=== PATIENT | female | born 1970 | race Caucasian/White ===

== ENCOUNTER → 2022-01-16 | Outpatient (CLI) | payer MEDICARE, OTHER ==
--- NOTE | 2022-01-16 11:17 | KCIC ---
INDICATION: Reason: RUQ PAIN / Spl. Instructions: Sofie in 2000 / History: New RUQ pain x 2 months. COMPARISON: December 28, 2021 CT TECHNIQUE: MRI images are obtained of the abdomen including three-dimensional MRCP images. FINDINGS: Vascular: No abdominal aortic aneurysm. Hepatobiliary: Within the gallbladder fossa region there is a 40 x 25 mm structure identified which c orresponds to the high density structure seen on recent CT. T2 hyperintense lesion at the medial aspe ct of the right lobe the liver measuring 12 mm. This lesion is nonspecific with most common cause inc luding cyst or hemangioma. The common bile duct measures up to approximately 7 mm which is near upper limits of normal in size. Tapers to a smaller size distally. There is a suspected small diverticulum off of the common hepatic duct measuring approximately 4 mm. Pancreas: There is a soft tissue density structure abutting the pancreas and liver measuring approxim ately 18 x 14 mm which could be secondary to an enlarged lymph node in the area. Spleen: Spleen unremarkable. Renal: No hydronephrosis. There is a couple of T2 hyperintense lesions of the bilateral kidneys which are likely secondary to small cysts. Gastrointestinal: There is again some edema of the mesentery at the upper abdomen with some scattered mildly prominent lymph nodes. IMPRESSION: * Within the expected location of the gallbladder fossa there is a T2 hypointense structure identif ied corresponding to the high density likely calcified structure seen on recent CT. Possible cause of this finding would include chronic calcified fluid collection, calcified fat necrosis with other pos sible causes include a densely calcified mass of the liver or adjacent mesentery. No intravenous cont rast was utilized therefore cannot assess whether any of this structure is secondary to a solid parti ally calcified mass and further workup options would include obtaining MRI or CT with and without con trast to assess for solid component. Another possible workup option would include obtaining a follow- up exam in a few months to ensure no growth. Given the calcifications on CT this would be favored to be a chronic process. * There is also a suspected enlarged lymph nodes seen adjacent to pancreas and liver. Could be react mason in nature but follow-up could be obtained to ensure no growth to exclude less common neoplastic c auses. Electronically signed by: Han Judge MD (01/16/2022 11:14 AM) [id number]
== END ==
LOC: KCIC MRI 07:58
PROVIDERS: ATTEND Surgery
DX: K76.89 Other specified diseases of liver (principal); N28.89 Other specified disorders of kidney and ureter; K86.89 Other specified diseases of pancreas; R60.0 Localized edema
CPT/HCPCS: 74181